=== PATIENT | male | born 1980 | race Caucasian/White ===

== ENCOUNTER 2021-12-15 | Emergency (ER) | payer SELFPAY ==
[~2021-12-15] VITALS: Ht 172.7 cm; Wt 79.4 kg
[2021-12-15] MEDS ORDERED: LIDOCAINE 1%-EPI 1:100,000 20 ML VIAL ONE (00:21)
--- NOTE | 2021-12-15 00:28 | NUR ---
BIBS C/O LACERATION TO POSTERIOR ASPECT OF HEAD APPROX 3CM WELL APPROXIMATED AFTER MECHANICAL SLIP AND FALL. -KO. PT ALERT AND ORIENTED X4 WITH NO NEURO DEFECITS BREATHING EVEN AND UNLABORED. EMT AT BEDSIDE FOR WOUND CARE.
[2021-12-15] MEDS ORDERED: LIDOCAINE 1%-EPI 1:100,000 20 ML VIAL TP ONE (00:30)
[2021-12-15] MEDS ORDERED: TDAP [DIPH/PERTUSSIS/TET] 0.5 ML VIAL IM ONE (00:58)
[2021-12-15] MEDS: TDAP [DIPH/PERTUSSIS/TET] 0.5 ML VIAL IM ONE ×2 (01:12→01:21)
[2021-12-15 01:21] VITALS: BP 130/77
--- NOTE | 2021-12-15 01:21 | NUR ---
Patient discharged to home in stable condition. Written and verbal after care instructions given. Patient verbalizes understanding of instruction.
== END 2021-12-15 01:22 | disposition home or self-care (01) ==
LOC: ER 00:02
DX: S01.01XA Laceration without foreign body of scalp, initial encounter (principal); Z60.2 Problems related to living alone; Z91.040 Latex allergy status; W01.0XXA Fall on same level from slipping, tripping and stumbling without subsequent striking against object, initial encounter; Y93.89 Activity, other specified; Y92.89 Other specified places as the place of occurrence of the external cause; Y99.8 Other external cause status
CPT/HCPCS: 12002; 90471; 90715; 99283; J3490